=== PATIENT | male | born 1960 | race African-American/Black ===

== ENCOUNTER 2023-03-07 18:44 | Emergency (ER) | payer BC ==
[2023-03-07 18:57] VITALS: BP 140/96; PULSE 80; RESP 16; TEMP 98.1; BMI 28.1
[2023-03-07 20:18] LABS: HEMOGLOBIN 12.9 G/dL (11.7-16.9); MCH 28.7 pg (25.7-33.7); MCHC 33.9 g/dl (32.0-35.9); MEAN CELL VOLUME 84.9 fl (80-96); MEAN PLT VOLUME 7.8 fl (7.5-11.1); PLATELET COUNT 178.5 10^3/uL (134-434); RBC 4.48 10^6/uL (4.00-5.60); RDW 14.2 % (11.9-15.9); WHITE BLOOD COUNT 8.2 10^3/uL (4.0-10.8)
[2023-03-07 20:32] LABS: ALBUMIN 4.3 g/dl (3.4-5.0); BILIRUBIN,TOTAL 0.4 mg/dl (0.2-1); CALCIUM 9.2 mg/dl (8.5-10.1); CREATININE 1.9 mg/dl (0.6-1.3); POTASSIUM 3.9 mmol/L (3.5-5.1); SGOT/AST 11.8 U/L (15-37); SGPT/ALT 10.8 U/L (7-52); TOT PROT 7.4 g/dl (6.4-8.2); URIC ACID 10.4 mg/dl (2.6-7.2)
[2023-03-07 20:43] LABS: PLATELET ESTIMATE ADEQUATE
[2023-03-07] MEDS ORDERED: NAPROXEN 500 MG TABLET PO ONE (20:54)
[2023-03-07] MEDS ORDERED: NAPROXEN 500 MG TABLET ONE (20:55)
== END 2023-03-07 21:01 | disposition home or self-care (01) ==
LOC: FER 18:44
DX: M10.9 Gout, unspecified (principal); M79.672 Pain in left foot; M79.89 Other specified soft tissue disorders
CPT/HCPCS: 36415; 73610-TC-LT-FY; 73630-TC-LT; 80053; 84550; 85027; 99284-25